=== PATIENT | male | born 1985 ===

== ENCOUNTER 2017-05-17 09:20 | Emergency (ER) | payer SELFPAY ==
[2017-05-17 09:48] VITALS: BP 131/84
--- NOTE | 2017-05-17 11:11 | UC ---
Throat Pain/Nasal Johny HPI - HPI Summary HPI Summary: 31 yo male with sore throat x 2 days f/c, FRANCO and myalgias no n/v - History of Current Complaint Chief Complaint: UCRespiratory Stated Complaint: FRANCO/FEVER/ST Time Seen by Provider: 05/17/17 10:06 Hx Obtained From: Patient Onset/Duration: Gradual Onset, Lasting Days Severity: Moderate Pain Intensity: 4 Pain Scale Used: 0-10 Numeric Cough: None Associated Signs & Symptoms: Positive: Fever - Epiglottits Risk Factors Epiglottis Risk Factors: Negative - Allergies/Home Medications Allergies/Adverse Reactions: Allergies Allergy/AdvReac Type Severity Reaction Status Date / Time No Known Allergies Allergy Verified 05/17/17 09:48 Home Medications: Home Medications Budesonide/Formote 160/4.5(NF) [Symbicort 160/4.5 (NF)] 2 puff INH BID 05/17/17 [History Confirmed 05/17/17] PMH/Surg Hx/FS Hx/Imm Hx Previously Healthy: Yes - Surgical History Surgical History: Yes Surgery Procedure, Year, and Place: appendectomy - Family History Known Family History: Positive: Hypertension, Other - mom had anuerysm - Social History Alcohol Use: Occasionally Substance Use Type: None Smoking Status (MU): Never Smoked Tobacco Review of Systems Constitutional: Fever, Chills Skin: Negative Eyes: Negative ENT: Sore Throat Respiratory: Negative Cardiovascular: Negative Gastrointestinal: Negative Genitourinary: Negative Motor: Negative Neurovascular: Negative Musculoskeletal: Myalgia Neurological: Headache Psychological: Negative Is Patient Immunocompromised?: No All Other Systems Reviewed And Are Negative: Yes Physical Exam Triage Information Reviewed: Yes Appearance: Well-Appearing, No Pain Distress, Well-Nourished Vital Signs: Initial Vital Signs Temp 99 F 05/17/17 09:45 Pulse 86 05/17/17 09:45 Resp 16 05/17/17 09:45 BP 131/84 05/17/17 09:45 Pulse Ox 100 05/17/17 09:45 Eyes: Positive: Conjunctiva Clear ENT: Positive: Hearing grossly normal, Pharyngeal erythema, Tonsillar swelling, Uvula midline. Negative: Trismus, Muffled voice, Hoarse voice, Sinus tenderness Neck: Positive: Supple, Nontender, Enlarged Nodes @ - ant cervical Respiratory: Positive: Lungs clear, Normal breath sounds, No respiratory distress Cardiovascular: Positive: RRR, No Murmur Musculoskeletal: Positive: ROM Intact, No Edema Psychological Exam: Normal Skin Exam: Normal Throat Pain/Nasal Course/Dx - Course Course Of Treatment: Strep(+) - Differential Dx/Diagnosis Provider Diagnoses: strep throat Discharge - Discharge Plan Condition: Stable Disposition: HOME Prescriptions: Amoxicillin PO (*) [Amoxicillin 875 MG (*)] 875 mg PO BID #20 tab Patient Education Materials: Strep Throat (ED) Referrals: Lowell HATHAWAY,Demetirus Dunn [Primary Care Provider] - If Needed Additional Instructions: rest fluids tylenol or advil if needed
== END 2017-05-17 11:12 | disposition home or self-care (01) ==
LOC: UCCORT 09:20
DX: J02.0 Streptococcal pharyngitis (principal); Z72.89 Other problems related to lifestyle
CPT/HCPCS: 87651; 99202; G0463